=== PATIENT | male | born 1935 | race Caucasian/White ===

== ENCOUNTER 2019-11-15 12:59 | Inpatient (IN) | payer MEDICARE, OTHER ==
[2019-11-15 13:28] LABS: ABSOLUTE BASOPHILS # (AUTO) 0.1 10^3/uL (0.0-0.2); ABSOLUTE LYMPHOCYTES (AUTO) 0.6 10^3/uL (0.5-4.7); ABSOLUTE MONOCYTES (AUTO) 0.4 10^3/uL (0.1-1.4); ABSOLUTE NEUT (AUTO) 8.3 10^3/uL (1.7-8.2); BASOPHILS % (AUTO) 0.6 % (0-2); EOSINOPHILS % (AUTO) 0.1 % (0-6); HEMATOCRIT 34.7 % (37.9-51.0); HEMOGLOBIN 11.5 g/dL (13.5-17.0); LYMPHOCYTES % (AUTO) 6.3 % (13-45); MEAN CORPUSCULAR HGB CONC 33.2 g/dL (32.0-36.0); MEAN CORPUSCULAR VOLUME 93 fl (80-97); MONOCYTES % (AUTO) 4.1 % (3-13); PLATELET COUNT 207 10^3/uL (150-450); RED BLOOD COUNT 3.71 10^6/uL (4.35-5.55); SEGMENTED NEUTROPHILS % (AUTO) 88.9 % (42-78); TOTAL CELLS COUNTED % (AUTO) 100 %; WHITE BLOOD COUNT 9.3 10^3/uL (4.0-10.5)
[2019-11-15] MEDS ORDERED: NORMAL SALINE 1000 ML 1,000 ML IV ONE (13:31)
[2019-11-15 13:41] LABS: INTERNATIONAL RATION (INR) 1.84; PROTHROMBIN TIME 21.5 SEC (11.4-15.4)
--- NOTE | 2019-11-15 13:45 | RADIOLOGY REPORT (SQ) ---
EXAM DESCRIPTION: CHEST SINGLE VIEW COMPLETED DATE/TIME: 11/15/2019 1:31 pm REASON FOR STUDY: Productive cough/fever x 3 days COMPARISON: PA and lateral views of the chest from 10/07/2015. EXAM PARAMETERS: NUMBER OF VIEWS: One view. TECHNIQUE: An AP view of the chest was obtained. RADIATION DOSE: NA LIMITATIONS: None. FINDINGS: LUNGS AND PLEURA: The prominence of the interstitium is unchanged. There are bibasilar (r ight greater than left) pleural and parenchymal opacities that could represent a combination of pleur al fluid, atelectasis and or consolidation. There is no pneumothorax. MEDIASTINUM AND HILAR STRUCTURES: Stable mediastinal and hilar contours. HEART AND VASCULAR STRUCTURES: Unchanged cardiomegaly. BONES: No acute findings. HARDWARE: Status post median sternotomy. The left subclavian vein approach single lead transvenous p acemaker is intact. OTHER: No other finding. IMPRESSION: Bibasilar (right greater than left) pleural and parenchymal opacities that could represe nt a combination of pleural fluid, atelectasis and/or consolidation. In addition, give the cardiomeg jose and prominence of the interstitium clinical correlation for signs and symptoms of volume overload is recommended. TECHNICAL DOCUMENTATION: JOB ID: [id number] 2010 [employer]- All Rights Reserved Reading location - IP/workstation name: [email or web address]
[2019-11-15 13:46] LABS: ALBUMIN 3.7 g/dL (3.5-5.0); ALKALINE PHOSPHATASE 91 U/L (38-126); ANION GAP 7 (5-19); ASPARTATE AMINO TRANSFERASE 42 U/L (17-59); BILIRUBIN,DIRECT 0.3 mg/dL (0.0-0.4); BLOOD UREA NITROGEN 18 mg/dL (7-20); CALCIUM 8.7 mg/dL (8.4-10.2); CARBON DIOXIDE 35 mmol/L (22-30); CHLORIDE 97 mmol/L (98-107); GLUCOSE 130 mg/dL (75-110); POTASSIUM 3.4 mmol/L (3.6-5.0); TOTAL PROTEIN 6.7 g/dL (6.3-8.2)
[2019-11-15 13:52] LABS: VENOUS BLOOD HCO3 30.7 mmol/L (20-32); VENOUS BLOOD PCO2 44.5 mmHg (35-63); VENOUS BLOOD PH 7.46 (7.30-7.42)
[2019-11-15 14:09] LABS: APPEARANCE,URINE CLEAR; BILIRUBIN,URINE NEGATIVE (NEGATIVE); COLOR,URINE YELLOW; GLUCOSE, URINE NEGATIVE (NEGATIVE); KETONES,URINE NEGATIVE (NEGATIVE); LEUKOCYTE ESTERASE,URINE NEGATIVE (NEGATIVE); NITRITE,URINE NEGATIVE (NEGATIVE); PROTEIN,URINE 100 mg/dL (NEGATIVE); URINE SPECIFIC GRAVITY 1.017
--- NOTE | 2019-11-15 14:18 | ER Document Report ---
ED Medical Screen (RME) - General Chief Complaint: Fever Stated Complaint: NAUSEA/VOMITING Time Seen by Provider: 11/15/19 14:10 Primary Care Provider: PATI LLANOS MD [Primary Care Provider] - Follow up as needed Mode of Arrival: Medic Information source: Relative Notes: 84-year-old male with history of cardiac disease bypass pacemaker, abdominal obstruction, resents to the emergency department with cough since Tuesday. Reports he has been vomiting since yesterday. also reports that he fell last night unsure if he hit his head unsure if he had any change of consciousness. She reports he said he been laying there for over 2 hours. No complaints of fever or diarrhea. No complaints of chest pain but reports abdomen feels queasy. I have greeted and performed a rapid initial assessment of this patient. A comprehensive ED assessment and evaluation of the patient, analysis of test results and completion of the medical decision making process will be conducted by additional ED providers. TRAVEL OUTSIDE OF THE [place] IN LAST 30 DAYS: No - Related Data Allergies/Adverse Reactions: No Known Allergies Allergy (Verified 10/07/15 14:53) Past Medical History - Past Medical History Cardiac Medical History: Reports: Hx Congestive Heart Failure, Hx Hypertension Pulmonary Medical History: Reports: Hx COPD Psychiatric Medical History: Denies: Hx Depression Past Surgical History: Reports: Hx Abdominal Surgery - bowel resection, Hx Cardiac Catheterization, Hx Cardiac Surgery, Hx Cholecystectomy, Hx Open Heart Surgery - Immunizations Hx Diphtheria, Pertussis, Tetanus Vaccination: No Physical Exam - Vital signs Vitals: Temp Resp BP Pulse Ox 99.1 F 28 H 179/78 H 95 11/15/19 13:11 11/15/19 13:11 11/15/19 13:11 11/15/19 13:11 Course - Vital Signs Vital signs: Temp Pulse Resp BP Pulse Ox 99.1 F 28 H 179/78 H 92 11/15/19 13:11 11/15/19 13:11 11/15/19 13:11 11/15/19 13:17 - Laboratory Result Diagrams: 11/15/19 13:08 11/15/19 13:08 Laboratory results interpreted by me: 11/15/19 11/15/19 11/15/19 13:08 13:08 13:08 RBC 3.71 L Hgb 11.5 L Hct 34.7 L RDW 19.0 H Lymph % (Auto) 6.3 L Absolute Neuts (auto) 8.3 H Seg Neutrophils % 88.9 H PT 21.5 H VBG pH Potassium 3.4 L Chloride 97 L Carbon Dioxide 35 H Glucose 130 H POC Glucose Total Bilirubin 2.0 H Urine Protein Urine Urobilinogen 11/15/19 11/15/19 11/15/19 13:30 13:38 13:40 RBC Hgb Hct RDW Lymph % (Auto) Absolute Neuts (auto) Seg Neutrophils % PT VBG pH 7.46 H Potassium Chloride Carbon Dioxide Glucose POC Glucose 141 H Total Bilirubin Urine Protein 100 H Urine Urobilinogen 4.0 H Doctor's Discharge - Discharge Referrals: PATI LLANOS MD [Primary Care Provider] - Follow up as needed
--- NOTE | 2019-11-15 15:02 | RADIOLOGY REPORT (SQ) ---
EXAM DESCRIPTION: CT HEAD WITHOUT COMPLETED DATE/TIME: 11/15/2019 2:47 pm REASON FOR STUDY: fall, taking Eliquis COMPARISON: CT of the head without contrast from 03/30/2015. TECHNIQUE: Axial images acquired through the brain without intravenous contrast. Images reviewed wi th bone, brain and subdural windows. Additional sagittal and coronal reconstructions were generated. Images stored on PACS. All CT scanners at this facility use dose modulation, iterative reconstruction, and/or weight based d osing when appropriate to reduce radiation dose to as low as reasonably achievable (ALARA). [facility]: Dose Right [facility]: CareDose [facility]: Dose Right [facility]: Teradose 4D [facility]: Epidemic [employer] RADIATION DOSE: CT Rad equipment meets quality standard of care and radiation dose reduction techniq ues were employed. CTDIvol: 53.2 mGy. DLP: 991 mGy-cm. LIMITATIONS: None. FINDINGS: There is diffuse age-appropriate cerebral and cerebral volume loss. The caliber the ventr icles is concordant with the degree of sulcation. The confluent areas of hypoattenuation within the supratentorial periventricular and subcortical whit e matter could represent the sequela of chronic microvascular ischemia. There is no acute intracranial hemorrhage, vascular territorial infarct, extra-axial fluid collection , mass effect or midline shift. There is no effacement of the cerebral sulci or basal subarachnoid c isterns. The orbits and globes are intact. The paranasal sinuses are clear. There is no fracture of the calv arium. IMPRESSION: No acute intracranial abnormality. EVIDENCE OF ACUTE STROKE: NO. COMMENT: Quality ID # [id number]: Final reports with documentation of one or more dose reduction techniques (e.g., Automated exposure control, adjustment of the mA and/or kV according to patient size, use of iterative reconstruction technique) TECHNICAL DOCUMENTATION: JOB ID: [id number] 2010 [employer]- All Rights Reserved Reading location - IP/workstation name: [email or web address]
--- NOTE | 2019-11-15 15:12 | RADIOLOGY REPORT (SQ) ---
EXAM DESCRIPTION: CT CHEST WITHOUT COMPLETED DATE/TIME: 11/15/2019 2:47 pm REASON FOR STUDY: cough COMPARISON: AP view of the chest from 11/15/2019 TECHNIQUE: CT scan performed of the chest without intravenous contrast. Images reviewed with lung, soft tissue and bone windows. Reconstructed coronal and sagittal MPR images reviewed. All images st ored on PACS. All CT scanners at this facility use dose modulation, iterative reconstruction, and/or weight based d osing when appropriate to reduce radiation dose to as low as reasonably achievable (ALARA). [facility]: Dose Right [facility]: CareDose [facility]: Dose Right [facility]: Teradose 4D [facility]: Smart [employer] RADIATION DOSE: CT Rad equipment meets quality standard of care and radiation dose reduction techniq ues were employed. CTDIvol: 14.4 mGy. DLP: 532 mGy-cm. LIMITATIONS: No technical limitations. FINDINGS: LUNGS AND PLEURA: The trachea main bronchi are patent. The interlobular septa are thicken ed and the lung parenchyma demonstrates a mosaic attenuation pattern. There is no superimposed conso lidation or greater than 6 mm nodular mass. There are bilateral pleural effusions (moderately-sized on the right) ; the attenuation of the pleura l fluid measures less than 20 Hounsfield unit and on the right-side extends into the oblique fissure. There is no pneumothorax. HILAR AND MEDIASTINAL STRUCTURES: No adenopathy or mass. HEART AND VASCULAR STRUCTURES: Cardiomegaly, severe atherosclerotic calcification of the coronary art eries and findings of prior CABG. The single transvenous pacemaker lead terminates within the right ventricle. There is no pericardial effusion or thoracic aortic aneurysm. UPPER ABDOMEN: Stable right adrenal nodule that measures 1.5 x 1.6 cm. There are cholecystectomy cli ps in the gallbladder fossa. THYROID AND OTHER SOFT TISSUES: No masses or adenopathy. BONES: No acute findings. HARDWARE: None in the chest. OTHER: No other findings. IMPRESSION: Cardiomegaly, bilateral pleural effusions and thickening of the interlobular septa. The se findings are suggestive of CHF. TECHNICAL DOCUMENTATION: JOB ID: [id number] Quality ID # [id number]: Final reports with documentation of one or more dose reduction techniques (e.g., Au tomated exposure control, adjustment of the mA and/or kV according to patient size, use of iterative reconstruction technique) 2010 [employer]- All Rights Reserved Reading location - IP/workstation name: [email or web address]
[2019-11-15] MEDS ORDERED: FUROSEMIDE INJ/PF 40 MG/4 ML SDV IV ONE (17:39)
[2019-11-15] MEDS ORDERED: CEFTRIAXONE 1 GM/D5W RTU 1 GM/50 ML RTUPB IV ONE (17:39)
[2019-11-15] MEDS ORDERED: POTASSI CL 20 MEQ/50 ML RIDER 20 MEQ/50 ML RTUPB IV ONE (17:54)
--- NOTE | 2019-11-15 18:28 | ER Document Report ---
ED General - General Chief Complaint: Fever Stated Complaint: NAUSEA/VOMITING Time Seen by Provider: 11/15/19 14:10 Mode of Arrival: Medic Information source: Patient, Relative Notes: Patient is an 84-year-old male presenting to the emergency department chief complaint of nausea with vomiting and fever. states that the patient has been sick since yesterday. She states that he was so weak yesterday that he did fall down. Patient has not taken many of his medications today because he has been vomiting. There is been no change in prescribed medications. states that 1 of their children is admitted to the hospital with bilateral pneumonia. TRAVEL OUTSIDE OF THE [place] IN LAST 30 DAYS: No - HPI Onset: Yesterday Onset/Duration: Gradual, Worse Quality of pain: Achy Severity: Moderate Pain Level: 2 Associated symptoms: Fever, Nausea, Vomiting, Weakness Exacerbated by: Movement, Walking, Coughing, Deep breathing Relieved by: Denies Similar symptoms previously: No Recently seen / treated by doctor: No - Related Data Allergies/Adverse Reactions: No Known Allergies Allergy (Verified 10/07/15 14:53) Past Medical History - General Information source: Relative Cannot obtain history due to: Altered mental status - Social History Smoking Status: Former Smoker Frequency of alcohol use: None Drug Abuse: None Lives with: Spouse/Significant other Family History: Reviewed & Not Pertinent Patient has suicidal ideation: No Patient has homicidal ideation: No - Past Medical History Cardiac Medical History: Reports: Hx Congestive Heart Failure, Hx Hypertension Pulmonary Medical History: Reports: Hx COPD Psychiatric Medical History: Denies: Hx Depression Past Surgical History: Reports: Hx Abdominal Surgery - bowel resection, Hx Cardiac Catheterization, Hx Cardiac Surgery, Hx Cholecystectomy, Hx Open Heart Surgery - Immunizations Hx Diphtheria, Pertussis, Tetanus Vaccination: No Review of Systems - Review of Systems Constitutional: See HPI EENT: No symptoms reported Cardiovascular: No symptoms reported Respiratory: Short of breath Gastrointestinal: Nausea, Vomiting Genitourinary: No symptoms reported Male Genitourinary: No symptoms reported Musculoskeletal: No symptoms reported Skin: See HPI Hematologic/Lymphatic: No symptoms reported Neurological/Psychological: No symptoms reported -: Yes All other systems reviewed and negative Physical Exam - Vital signs Vitals: Temp Resp BP Pulse Ox 99.1 F 28 H 179/78 H 95 11/15/19 13:11 11/15/19 13:11 11/15/19 13:11 11/15/19 13:11 - Notes Notes: PHYSICAL EXAMINATION: GENERAL: Patient is an 84-year-old male sleeping on examination does awaken to noxious stimuli HEAD: Atraumatic, normocephalic. EYES: Pupils equal round and reactive to light, extraocular movements intact, sclera anicteric, conjunctiva are normal. ENT: nares patent, oropharynx clear without exudates. Dry mucous membranes. NECK: Normal range of motion, supple without lymphadenopathy, no appreciable JVD LUNGS: Lungs demonstrate mild rhonchi to the lower lobes poor excursion, poor effort. HEART: Regular rate with slightly irregularly irregular rhythm without murmurs ABDOMEN: Soft, minimally tender, increased bowel sounds. No guarding, no rebound. No masses appreciated. EXTREMITIES: 2+ pulses x4 right lower extremity to the calf mainly to the lateral aspect shows erythema and increased warmth NEUROLOGICAL: No focal neurological deficits. Moves all extremities spontaneously and on command. Patient does display signs of generalized weakness and malaise. SKIN: Warm, Dry, and intact. Normal turgor, no rashes or lesions noted. Course - Re-evaluation Re-evalutation: 11/15/19 18:30 Patient has been reevaluated several times while in emergency department patient has been maintained on a electronic device monitor without decompensation. After reviewing patient's laboratory EKG and radiologic results patient has been found to be hypokalemic also having a CHF exacerbation and right lower extremity cellulitis. When speaking with the patient's it has been uncovered that the patient's son is in the hospital with bilateral pneumonia at this time. We have started management of the cellulitis with Rocephin patient is receiving potassium 20 mEq IV piggyback and patient has received 40 mg of Lasix IV and a Erazo catheter has been placed because of the patient's incontinence and immobility. Patient has been consulted to the hospitalist for admission. - Vital Signs Vital signs: Temp Pulse Resp BP Pulse Ox 99.1 F 18 137/75 H 98 11/15/19 13:11 11/15/19 18:31 11/15/19 18:31 11/15/19 18:31 - Laboratory Result Diagrams: 11/15/19 13:08 11/15/19 13:08 Laboratory results interpreted by me: 11/15/19 11/15/19 11/15/19 13:08 13:08 13:08 RBC 3.71 L Hgb 11.5 L Hct 34.7 L RDW 19.0 H Lymph % (Auto) 6.3 L Absolute Neuts (auto) 8.3 H Seg Neutrophils % 88.9 H PT 21.5 H VBG pH Potassium 3.4 L Chloride 97 L Carbon Dioxide 35 H Glucose 130 H POC Glucose Total Bilirubin 2.0 H NT-Pro-B Natriuret Pep Urine Protein Urine Urobilinogen 11/15/19 11/15/19 11/15/19 13:08 13:30 13:38 RBC Hgb Hct RDW Lymph % (Auto) Absolute Neuts (auto) Seg Neutrophils % PT VBG pH 7.46 H Potassium Chloride Carbon Dioxide Glucose POC Glucose 141 H Total Bilirubin NT-Pro-B Natriuret Pep 51336 H Urine Protein Urine Urobilinogen 11/15/19 13:40 RBC Hgb Hct RDW Lymph % (Auto) Absolute Neuts (auto) Seg Neutrophils % PT VBG pH Potassium Chloride Carbon Dioxide Glucose POC Glucose Total Bilirubin NT-Pro-B Natriuret Pep Urine Protein 100 H Urine Urobilinogen 4.0 H - Diagnostic Test Radiology reviewed: Reports reviewed - EKG Interpretation by Me Rate: Normal Rhythm: A.Fib When compared to previous EKG there are: Changes noted Additional EKG results interpreted by me: 11/15/19 18:29 EKG as interpreted by me demonstrates atrial fibrillation with a normal ventricular response [address] depression in the anterolateral leads. This is new compared to prior EKG of October 07, 2015. Discharge - Discharge Clinical Impression: Hypokalemia CHF exacerbation Qualifiers: Heart failure type: systolic Qualified Code(s): I50.23 - Acute on chronic sy stolic (congestive) heart failure Cellulitis Qualifiers: Site of cellulitis: extremity Site of cellulitis of extremity: lower extremity Laterality: right Qualified Code(s): L03.115 - Cellulitis of right lower limb Condition: Fair Disposition: ADMITTED INPATIENT Admitting Provider: Lydia (Hospitalist) Unit Admitted: Telemetry
[2019-11-15] MEDS ORDERED: PROMETHAZINE HCL INJ 25 MG/1 ML VIAL IV PRN (18:39)
[2019-11-15] MEDS ORDERED: ONDANSETRON HCL INJ/PF 4 MG/2 ML SDV IV PRN (18:39)
[2019-11-15] MEDS ORDERED: OXYCODONE-ACETAMINOPHEN 5-325 MG TABLET PO PRN (18:39)
[2019-11-15] MEDS ORDERED: ACETAMINOPHEN 325 MG TABLET PO PRN (18:39)
--- NOTE | 2019-11-15 18:51 | PDOC H&P ---
History of Present Illness Admission Date/PCP: PATI LLANOS MD History of Present Illness: MARY ANN RAMOS is a 84 year old male past medical history of CAD status post CABG and stent, CHF, COPD, TIA, atrial fibrillation presenting to ED complaining of nausea, vomiting, cough, subjective fever. Stated that about 3 days ago he started having nonproductive cough, but this morning he had a subjective fever and started to have nausea and one episode of nonbilious and nonbloody vomiting associated with generalized weakness and fatigue. Patient denies any recent travel but his son who is hospital here at [facility] has been diagnosed with multifocal pneumonia. Patient also noted to have redness and swelling of right lower extremity below the knee down to 1 day. Denies any history of right lower extremity trauma. In ED he was noted to have a BNP of 10,500, CT chest showed cardiomegaly and bilateral pleural effusion. Hospital was consulted for admission. Past Medical History Cardiac Medical History: Reports: Congestive Heart Failure, Hypertension Pulmonary Medical History: Reports: Chronic Obstructive Pulmonary Disease (COPD) Psychiatric Medical History: Denies: Depression Past Surgical History Past Surgical History: Reports: Cardiac Catheterization, Cholecystectomy Social History Smoking Status: Unknown if Ever Smoked Frequency of Alcohol Use: Rare Hx Recreational Drug Use: No Hx Prescription Drug Abuse: No Family History Family History: Reviewed & Not Pertinent Parental Family History Reviewed: Yes Children Family History Reviewed: Yes Sibling(s) Family History Reviewed.: Yes Medication/Allergy Home Medications: Allopurinol [Zyloprim 100 mg Tablet] 100 mg PO DAILY 10/07/15 Apixaban [Eliquis 5 mg Tablet] 5 mg PO BID 10/07/15 Atorvastatin Calcium [Lipitor 40 mg Tablet] 40 mg PO DAILY 10/07/15 Carvedilol [Coreg 3.125 mg Tablet] 2 tab PO BID 10/07/15 Cyanocobalamin (Vitamin B-12) [B-12] 1,000 mcg PO DAILY 10/07/15 Lisinopril 20 mg PO DAILY 10/07/15 Potassium Chloride 20 meq PO DAILY 10/07/15 Sennosides [Senna] 8.6 mg PO BID PRN 10/07/15 Albuterol Sulfate [Proair HFA Inhalation Aerosol 8.5 gm MDI] 2 puff IH Q6HP PRN #1 hfa.aer.ad 10/09/15 Docusate Sodium [Colace 100 mg Capsule] 100 mg PO BID #60 capsule 10/09/15 Furosemide [Lasix 40 mg Tablet] 40 mg PO BID #60 tablet 10/09/15 Metolazone [Zaroxolyn 2.5 mg Tablet] 2.5 mg PO DAILY #30 tablet 10/09/15 Nitroglycerin [Nitro-Dur 2.5 mg (0.1 mg/Hr) Transdermal Ptch] 1 each TD DAILY #30 patch.td24 10/09/15 Tiotropium Gobler [Spiriva Handihaler 5 Cap/Kit (18 Mcg/Cap)] 1 cap IH DAILY #1 kit 10/09/15 Allergies/Adverse Reactions: No Known Allergies Allergy (Verified 10/07/15 14:53) Review of Systems Review of Systems: as per hpi Physical Exam Vital Signs: Temp Pulse Resp BP Pulse Ox 99.1 F 18 137/75 H 98 11/15/19 13:11 11/15/19 18:31 11/15/19 18:31 11/15/19 18:31 Intake & Output 11/14/19 11/15/19 11/16/19 06:59 06:59 06:59 Intake Total 1000 Balance 1000 Weight 82.3 kg General appearance: PRESENT: no acute distress, well-developed, well-nourished Respiratory exam: PRESENT: crackles, decreased breath sounds. ABSENT: rales, rhonchi, wheezes Cardiovascular exam: PRESENT: RRR. ABSENT: diastolic murmur, rubs, systolic murmur GI/Abdominal exam: PRESENT: normal bowel sounds, soft. ABSENT: distended, guarding, mass, organolmegaly, rebound, tenderness Neurological exam: PRESENT: alert, awake, oriented to person, oriented to place, oriented to time, oriented to situation, CN II-XII grossly intact. ABSENT: motor sensory deficit Skin exam: PRESENT: other - Right lower extremity below the knee circumferential mild swelling and erythema, no tenderness or discharge. Results Laboratory Results: 11/15/19 13:08 11/15/19 13:08 11/15/19 11/15/19 11/15/19 13:08 13:08 13:08 WBC 9.3 RBC 3.71 L Hgb 11.5 L Hct 34.7 L MCV 93 MCH 31.0 MCHC 33.2 RDW 19.0 H Plt Count 207 Seg Neutrophils % 88.9 H VBG pH VBG pCO2 VBG HCO3 VBG Base Excess Sodium 138.6 Potassium 3.4 L Chloride 97 L Carbon Dioxide 35 H Anion Gap 7 BUN 18 Creatinine 0.88 Est GFR ( Amer) > 60 Glucose 130 H Lactic Acid 1.3 Calcium 8.7 Total Bilirubin 2.0 H AST 42 Alkaline Phosphatase 91 Total Protein 6.7 Albumin 3.7 Urine Color Urine Appearance Urine pH Ur Specific [place] Urine Protein Urine Glucose (UA) Urine Ketones Urine Blood Urine Nitrite Ur Leukocyte Esterase Urine WBC (Auto) Urine RBC (Auto) 11/15/19 11/15/19 11/15/19 13:30 13:40 16:00 WBC RBC Hgb Hct MCV MCH MCHC RDW Plt Count Seg Neutrophils % VBG pH 7.46 H VBG pCO2 44.5 VBG HCO3 30.7 VBG Base Excess 6.0 Sodium Potassium Chloride Carbon Dioxide Anion Gap BUN Creatinine Est GFR ( Amer) Glucose Lactic Acid 1.0 Calcium Total Bilirubin AST Alkaline Phosphatase Total Protein Albumin Urine Color YELLOW Urine Appearance CLEAR Urine pH 7.0 Ur Specific [place] 1.017 Urine Protein 100 H Urine Glucose (UA) NEGATIVE Urine Ketones NEGATIVE Urine Blood NEGATIVE Urine Nitrite NEGATIVE Ur Leukocyte Esterase NEGATIVE Urine WBC (Auto) 2 Urine RBC (Auto) 2 11/15/19 11/15/19 13:08 13:08 Troponin I 0.092 NT-Pro-B Natriuret Pep 24122 H Impressions: Chest X-Ray 11/15/19 00:00 IMPRESSION: Bibasilar (right greater than left) pleural and parenchymal opacities that could represent a combination of pleural fluid, atelectasis and/or consolidation. In addition, give the cardiomegaly and prominence of the interstitium clinical correlation for signs and symptoms of volume overload is recommended. Head CT 11/15/19 14:19 IMPRESSION: No acute intracranial abnormality. EVIDENCE OF ACUTE STROKE: NO. Chest CT 11/15/19 14:22 IMPRESSION: Cardiomegaly, bilateral pleural effusions and thickening of the interlobular septa. These findings are suggestive of CHF. Assessment and Plan - Diagnosis (1) CHF exacerbation Qualifiers: Heart failure type: systolic Qualified Code(s): I50.23 - Acute on chronic systolic (congestive) heart failure Is this a current diagnosis for this admission?: Yes Plan: Acute systolic heart failure. EKG no significant changes. Troponins mildly elevated. proBNP 10,500. Admit to telemetry, strict in and out, cardiac diet, IV diuretics, beta- blockers, SORAIDA, daily weights. (2) Cellulitis Qualifiers: Site of cellulitis: extremity Site of cellulitis of extremity: lower extremity Laterality: right Qualified Code(s): L03.115 - Cellulitis of right lower limb Is this a current diagnosis for this admission?: Yes Plan: Lower extremity below the knee mild cellulitis. We will start empiric IV antibiotics. Blood culture. (3) Hypokalemia Is this a current diagnosis for this admission?: Yes Plan: Likely due to GI losses. No acute EKG changes. Replace as needed. Potassium level tomorrow. (4) Atrial fibrillation Qualifiers: Atrial fibrillation type: permanent Qualified Code(s): I48.21 - Permanent atrial fibrillation Is this a current diagnosis for this admission?: Yes Plan: History of chronic persistent atrial fibrillation. Rate controlled. Anticoagulated. Start home meds. Outpatient PCP and cardiology follow-up. (5) CAD (coronary artery disease) Is this a current diagnosis for this admission?: Yes Plan: Denies any anginal symptoms. No EKG change. Mild troponin elevation likely due to acute CHF exacerbation. Restart home meds. Trend troponins. Telemetry. (6) Hypertension Is this a current diagnosis for this admission?: Yes Plan: Volume overloaded. Normotensive. Restart home meds. Outpatient PCP follow-up.
--- NOTE | 2019-11-15 19:41 | EKG REPORT ---
SEVERITY:- ABNORMAL ECG - ATRIAL FIBRILLATION MULTIPLE VENTRICULAR PREMATURE COMPLEXES NONSPECIFIC INTRAVENTRICULAR CONDUCTION DELAY ST DEPRESSION, CONSIDER ISCHEMIA, ANT-LAT LDS : Confirmed by: Connie Orellana MD 15-Nov-2019 19:41:03
[2019-11-15] MEDS: IPRATROPIUM/ALBUTEROL 0.5-2.5 MG/3 ML AMPUL NEB SCH (20:37)
[2019-11-15 21:32] LABS: CREATINE KINASE MB 0.53 ng/mL (<4.55)
[2019-11-15 21:37] LABS: TROPONIN I 0.102 ng/mL
[2019-11-15] MEDS ORDERED: HEPARIN SOD (PORCINE) 5,000 UNIT/ML 1 ML VIAL SUBCUT SCH (22:00)
[2019-11-15] MEDS ORDERED: FUROSEMIDE INJ/PF 20 MG/2 ML SDV IV SCH (22:00)
[2019-11-15] MEDS: FAMOTIDINE 20 MG TABLET PO SCH (22:40)
[2019-11-16 05:34] LABS: HEMATOCRIT 32.8 % (37.9-51.0); HEMOGLOBIN 11.2 g/dL (13.5-17.0); MEAN CORPUSCULAR HEMOGLOBIN 31.6 pg (27.0-33.4); MEAN CORPUSCULAR HGB CONC 34.1 g/dL (32.0-36.0); MEAN CORPUSCULAR VOLUME 93 fl (80-97); PLATELET COUNT 174 10^3/uL (150-450); RED BLOOD COUNT 3.54 10^6/uL (4.35-5.55); RED CELL DISTRIBUTION WIDTH 19.1 % (11.5-14.0); WHITE BLOOD COUNT 6.7 10^3/uL (4.0-10.5)
[2019-11-16 05:50] LABS: ALBUMIN 3.3 g/dL (3.5-5.0); ALKALINE PHOSPHATASE 70 U/L (38-126); ANION GAP 6 (5-19); ASPARTATE AMINO TRANSFERASE 40 U/L (17-59); BILIRUBIN,DIRECT 0.4 mg/dL (0.0-0.4); BILIRUBIN,TOTAL 1.1 mg/dL (0.2-1.3); BLOOD UREA NITROGEN 19 mg/dL (7-20); CALCIUM 8.4 mg/dL (8.4-10.2); CARBON DIOXIDE 38 mmol/L (22-30); CHLORIDE 99 mmol/L (98-107); GLUCOSE 96 mg/dL (75-110); POTASSIUM 3.6 mmol/L (3.6-5.0); TOTAL PROTEIN 6.4 g/dL (6.3-8.2)
[2019-11-16 06:00] LABS: CREATINE KINASE MB 0.49 ng/mL (<4.55)
[2019-11-16 06:02] LABS: ABSOLUTE LYMPHOCYTES# (MANUAL) 0.4 10^3/uL (0.5-4.7); ABSOLUTE MONOCYTES # (MANUAL) 0.2 10^3/uL (0.1-1.4); BAND NEUTROPHILS % (MANUAL) 1 % (3-5); BASOPHILS % (MANUAL) 0 % (0-2); EOSINOPHILS % (MANUAL) 1 % (0-6); LYMPHOCYTES % (MANUAL) 6 % (13-45); MONOCYTES % (MANUAL) 3 % (3-13); SEGMENTED NEUTROPHILS % (MAN) 89 % (42-78); TOTAL CELLS COUNTED 100
[2019-11-16 06:03] LABS: POIKILOCYTOSIS SLIGHT; POLYCHROMASIA SLIGHT; TOXIC GRANULATION 1+
[2019-11-16 06:04] LABS: BURR CELLS SLIGHT; OVALOCYTES SLIGHT; PLATELET COMMENT ADEQUATE; SCHISTOCYTES SLIGHT
[2019-11-16 06:11] LABS: TROPONIN I 0.063 ng/mL
[2019-11-16] MEDS: IPRATROPIUM/ALBUTEROL 0.5-2.5 MG/3 ML AMPUL NEB SCH ×3 (08:07→20:26)
--- NOTE | 2019-11-16 09:07 | PDOC PROGRESS REPORT ---
Subjective Progress Note for:: 11/16/19 Subjective:: 84 year old male past medical history of CAD status post CABG and stent, CHF, COPD, TIA, atrial fibrillation presenting to ED complaining of nausea, vomiting, cough, subjective fever. Stated that about 3 days ago he started having nonproductive cough, but this morning he had a subjective fever and started to have nausea and one episode of nonbilious and nonbloody vomiting associated with generalized weakness and fatigue. Patient denies any recent travel but his son who is hospital here at [facility] has been diagnosed with multifocal pneumonia. Patient also noted to have redness and swelling of right lower extremity below the knee down to 1 day. Denies any history of right lower extremity trauma. In ED he was noted to have a BNP of 10,500, CT chest showed cardiomegaly and bilateral pleural effusion. Hospital was consulted for admission. 11/16/[id number]-old male with history of coronary artery disease status post CABG and stent placement, congestive heart failure, COPD, TIA, atrial fibrillation on Eliquis admitted with complaints of nausea vomiting associated with subjective fever. Patient is comfortable in the bed communicating well. At the time of examination found to have right lower leg cellulitis. Patient is receiving antibiotic therapy. Portably in the bed communicating well. Not in distress. Reason For Visit: CELLULITIS, SHORTNESS OF BREATH, NAUSEA AND Physical Exam Vital Signs: Temp Pulse Resp BP Pulse Ox 97.8 F 14 142/73 H 98 11/16/19 08:10 11/16/19 07:31 11/16/19 07:31 11/16/19 07:31 Intake & Output 11/15/19 11/16/19 11/17/19 06:59 06:59 06:59 Intake Total 1100 Output Total 2000 Balance -900 Weight 82.3 kg General appearance: PRESENT: no acute distress, well-developed Head exam: PRESENT: atraumatic Eye exam: PRESENT: PERRLA Mouth exam: PRESENT: moist, tongue midline Teeth exam: PRESENT: poor dentation Neck exam: ABSENT: carotid bruit, JVD, lymphadenopathy, thyromegaly Respiratory exam: PRESENT: clear to auscultation beverly. ABSENT: rales, rhonchi, wheezes Cardiovascular exam: PRESENT: +S1, +S2, systolic murmur Pulses: PRESENT: normal dorsalis pedis pul GI/Abdominal exam: PRESENT: normal bowel sounds, soft. ABSENT: distended, guarding, mass, organolmegaly, rebound, tenderness Rectal exam: PRESENT: deferred Gentrourinary exam: PRESENT: indwelling catheter Extremities exam: PRESENT: full ROM. ABSENT: calf tenderness, clubbing, pedal edema Neurological exam: PRESENT: alert, awake, oriented to person, oriented to place, oriented to time, oriented to situation, CN II-XII grossly intact. ABSENT: motor sensory deficit Psychiatric exam: PRESENT: appropriate affect, normal mood. ABSENT: homicidal ideation, suicidal ideation Results Laboratory Results: 11/16/19 05:13 11/16/19 05:13 11/15/19 11/15/19 11/15/19 13:08 13:08 13:08 WBC 9.3 RBC 3.71 L Hgb 11.5 L Hct 34.7 L MCV 93 MCH 31.0 MCHC 33.2 RDW 19.0 H Plt Count 207 Seg Neutrophils % 88.9 H VBG pH VBG pCO2 VBG HCO3 VBG Base Excess Sodium 138.6 Potassium 3.4 L Chloride 97 L Carbon Dioxide 35 H Anion Gap 7 BUN 18 Creatinine 0.88 Est GFR ( Amer) > 60 Glucose 130 H Lactic Acid 1.3 Calcium 8.7 Magnesium Total Bilirubin 2.0 H AST 42 Alkaline Phosphatase 91 Total Protein 6.7 Albumin 3.7 Urine Color Urine Appearance Urine pH Ur Specific [place] Urine Protein Urine Glucose (UA) Urine Ketones Urine Blood Urine Nitrite Ur Leukocyte Esterase Urine WBC (Auto) Urine RBC (Auto) 11/15/19 11/15/19 11/15/19 13:30 13:40 16:00 WBC RBC Hgb Hct MCV MCH MCHC RDW Plt Count Seg Neutrophils % VBG pH 7.46 H VBG pCO2 44.5 VBG HCO3 30.7 VBG Base Excess 6.0 Sodium Potassium Chloride Carbon Dioxide Anion Gap BUN Creatinine Est GFR ( Amer) Glucose Lactic Acid 1.0 Calcium Magnesium Total Bilirubin AST Alkaline Phosphatase Total Protein Albumin Urine Color YELLOW Urine Appearance CLEAR Urine pH 7.0 Ur Specific [place] 1.017 Urine Protein 100 H Urine Glucose (UA) NEGATIVE Urine Ketones NEGATIVE Urine Blood NEGATIVE Urine Nitrite NEGATIVE Ur Leukocyte Esterase NEGATIVE Urine WBC (Auto) 2 Urine RBC (Auto) 2 11/15/19 11/16/19 11/16/19 20:14 05:13 05:13 WBC 6.7 RBC 3.54 L Hgb 11.2 L Hct 32.8 L MCV 93 MCH 31.6 MCHC 34.1 RDW 19.1 H Plt Count 174 Seg Neutrophils % Not Reportable VBG pH VBG pCO2 VBG HCO3 VBG Base Excess Sodium 143.0 Potassium 3.6 Chloride 99 Carbon Dioxide 38 H Anion Gap 6 BUN 19 Creatinine 0.88 Est GFR ( Amer) > 60 Glucose 96 Lactic Acid 1.5 Calcium 8.4 Magnesium 1.7 Total Bilirubin 1.1 AST 40 Alkaline Phosphatase 70 Total Protein 6.4 Albumin 3.3 L Urine Color Urine Appearance Urine pH Ur Specific [place] Urine Protein Urine Glucose (UA) Urine Ketones Urine Blood Urine Nitrite Ur Leukocyte Esterase Urine WBC (Auto) Urine RBC (Auto) 11/15/19 11/15/19 11/15/19 13:08 13:08 20:45 Creatine Kinase 57 CK-MB (CK-2) Troponin I 0.092 NT-Pro-B Natriuret Pep 50943 H 11/15/19 11/16/19 11/16/19 20:45 05:13 05:13 Creatine Kinase 48 L CK-MB (CK-2) 0.53 0.49 Troponin I 0.102 0.063 NT-Pro-B Natriuret Pep Impressions: Chest X-Ray 11/15/19 00:00 IMPRESSION: Bibasilar (right greater than left) pleural and parenchymal opacities that could represent a combination of pleural fluid, atelectasis and/or consolidation. In addition, give the cardiomegaly and prominence of the interstitium clinical correlation for signs and symptoms of volume overload is recommended. Head CT 11/15/19 14:19 IMPRESSION: No acute intracranial abnormality. EVIDENCE OF ACUTE STROKE: NO. Chest CT 11/15/19 14:22 IMPRESSION: Cardiomegaly, bilateral pleural effusions and thickening of the interlobular septa. These findings are suggestive of CHF. Assessment and Plan - Diagnosis (1) CHF exacerbation Qualifiers: Heart failure type: systolic Qualified Code(s): I50.23 - Acute on chronic systolic (congestive) heart failure Is this a current diagnosis for this admission?: Yes Plan: Acute systolic heart failure. EKG no significant changes. Troponins mildly elevated. proBNP 10,500. Admit to telemetry, strict in and out, cardiac diet, IV diuretics, beta- blockers, SORAIDA, daily weights. 11/16/2019-patient admitted with CHF exacerbation chest x-ray indicated bilateral pleural effusions associated with cardiomegaly and BNP is 10,500. Patient is receiving IV Lasix 40 mg twice a day patient is also on beta-blockers , SORAIDA inhibitor's. Plan is to repeat the chest x-ray today. (2) Cellulitis Qualifiers: Site of cellulitis: extremity Site of cellulitis of extremity: lower extremity Laterality: right Qualified Code(s): L03.115 - Cellulitis of right lower limb Is this a current diagnosis for this admission?: Yes Plan: Lower extremity below the knee mild cellulitis. We will start empiric IV antibiotics. Blood culture. 11/16/2019-patient came in with right lower leg swelling and mild cellulitis. Cultures are pending. Currently on IV Rocephin plan is to continue the antibiotic therapy. (3) Hypokalemia Is this a current diagnosis for this admission?: Yes Plan: Likely due to GI losses. No acute EKG changes. Replace as needed. Potassium level tomorrow. [id number]-patient came in with hypokalemia received potassium supplementations no EKG changes latest potassium is 3.6. Hypokalemia is resolved. (4) Atrial fibrillation Qualifiers: Atrial fibrillation type: permanent Qualified Code(s): I48.21 - Permanent atrial fibrillation Is this a current diagnosis for this admission?: Yes Plan: History of chronic persistent atrial fibrillation. Rate controlled. Anticoagulated. Start home meds. Outpatient PCP and cardiology follow-up. 11/16/19-patient has history of chronic atrial fibrillation on Eliquis at home. Plan is to continue Eliquis during the hospital stay. (5) CAD (coronary artery disease) Is this a current diagnosis for this admission?: No Plan: Denies any anginal symptoms. No EKG change. Mild troponin elevation likely due to acute CHF exacerbation. Restart home meds. Trend troponins. Telemetry. 11/16/2019-patient has history of coronary artery disease mild elevation in troponin most likely type II myocardial ischemia secondary to CHF exacerbation. (6) Hypertension Is this a current diagnosis for this admission?: No Plan: Volume overloaded. Normotensive. Restart home meds. Outpatient PCP follow-up. 11/16/19-patient has history of chronic essential hypertension blood pressure this morning is 142/72. Stable. Plan is to continue her home medications. (7) Bradycardia Is this a current diagnosis for this admission?: No Plan: 11/16/2019-patient's heart rate is around 50. Patient is on beta-blockers at home. To hold Coreg at this time.
--- NOTE | 2019-11-16 09:45 | RADIOLOGY REPORT (SQ) ---
EXAM DESCRIPTION: CHEST 2 VIEWS COMPLETED DATE/TIME: 11/16/2019 9:35 am REASON FOR STUDY: chf COMPARISON: None. EXAM PARAMETERS: NUMBER OF VIEWS: two views TECHNIQUE: Digital Frontal and Lateral radiographic views of the chest acquired. RADIATION DOSE: NA LIMITATIONS: none FINDINGS: LUNGS AND PLEURA: No definite airspace disease. Small bilateral effusions. No pneumothor ax. MEDIASTINUM AND HILAR STRUCTURES: Stable. HEART AND VASCULAR STRUCTURES: Enlarged, stable. Central vascular congestion. No overt edema. Evid ence of prior CABG. BONES: Sternotomy changes. No acute findings. HARDWARE: CABG hardware. Sternotomy changes. Left-sided single lead cardiac pacer with lead over ri ght ventricle. OTHER: No other significant finding. IMPRESSION: Stable enlarged cardiac silhouette, central vascular congestion and small bilateral effu sions. No overt pulmonary edema. TECHNICAL DOCUMENTATION: JOB ID: [id number] 2010 [employer]- All Rights Reserved Reading location - IP/workstation name: [email or web address]
[2019-11-16] MEDS ORDERED: FUROSEMIDE INJ/PF 20 MG/2 ML SDV IV SCH (10:00)
[2019-11-16] MEDS: FAMOTIDINE 20 MG TABLET PO SCH ×2 (10:54→21:11)
[2019-11-16] MEDS: APIXABAN 5 MG TABLET PO SCH ×2 (10:54→20:19)
[2019-11-16] MEDS: CEFTRIAXONE 1 GM/D5W RTU 1 GM/50 ML RTUPB IV SCH (10:55)
[2019-11-16] MEDS: FUROSEMIDE INJ/PF 40 MG/4 ML SDV IV SCH ×2 (10:55→21:11)
[2019-11-16 14:15] LABS: CREATINE KINASE MB 0.64 ng/mL (<4.55); TROPONIN I 0.047 ng/mL
[2019-11-17] MEDS: IPRATROPIUM/ALBUTEROL 0.5-2.5 MG/3 ML AMPUL NEB SCH ×3 (08:07→20:33)
[2019-11-17] MEDS: CEFTRIAXONE 1 GM/D5W RTU 1 GM/50 ML RTUPB IV SCH (09:26)
[2019-11-17] MEDS: APIXABAN 5 MG TABLET PO SCH ×2 (09:26→17:28)
[2019-11-17] MEDS: FAMOTIDINE 20 MG TABLET PO SCH ×2 (09:26→21:49)
[2019-11-17] MEDS: FUROSEMIDE INJ/PF 40 MG/4 ML SDV IV SCH ×2 (09:26→21:49)
[2019-11-17] MEDS: LISINOPRIL 5 MG TABLET PO SCH (11:58)
--- NOTE | 2019-11-17 12:13 | PDOC PROGRESS REPORT ---
Subjective Progress Note for:: 11/17/19 Subjective:: MARY ANN RAMOS is a 84 year old male past medical history of CAD status post CABG and stent, CHF, COPD, TIA, atrial fibrillation presenting to ED complaining of nausea, vomiting, cough, subjective fever. Stated that about 3 days ago he started having nonproductive cough, but this morning he had a subjective fever and started to have nausea and one episode of nonbilious and nonbloody vomiting associated with generalized weakness and fatigue. Patient denies any recent travel but his son who is hospital here at [facility] has been diagnosed with multifocal pneumonia. Patient also noted to have redness and swelling of right lower extremity below the knee down to 1 day. Denies any history of right lower extremity trauma. In ED he was noted to have a BNP of 10,500, CT chest showed cardiomegaly and bilateral pleural effusion. Hospital was consulted for admission. 11/17/2019. No acute events overnight. Patient is still complaining of shortness of breath and generalized weakness otherwise denies any fever, chills, nausea, vomiting, diarrhea, constipation or any urinary symptoms. Reason For Visit: CELLULITIS, SHORTNESS OF BREATH, NAUSEA AND Physical Exam Vital Signs: Temp Pulse Resp BP Pulse Ox 98.4 F 56 L 16 153/72 H 98 11/17/19 07:57 11/17/19 08:09 11/17/19 08:09 11/17/19 07:57 11/17/19 08:09 Intake & Output 11/16/19 11/17/19 11/18/19 06:59 06:59 06:59 Intake Total 1100 310 50 Output Total 2000 1925 Balance -900 -1615 50 Weight 82.3 kg 87.6 kg General appearance: PRESENT: no acute distress, well-developed, well-nourished Head exam: PRESENT: atraumatic, normocephalic Respiratory exam: PRESENT: crackles, wheezes. ABSENT: rales, rhonchi Cardiovascular exam: PRESENT: RRR. ABSENT: diastolic murmur, rubs, systolic murmur GI/Abdominal exam: PRESENT: normal bowel sounds, soft. ABSENT: distended, guarding, mass, organolmegaly, rebound, tenderness Neurological exam: PRESENT: alert, awake, oriented to person, oriented to place, oriented to time, oriented to situation, CN II-XII grossly intact. ABSENT: motor sensory deficit Results Laboratory Results: 11/16/19 05:13 11/16/19 05:13 11/15/19 11/15/19 11/15/19 13:08 13:08 20:45 Creatine Kinase 57 CK-MB (CK-2) Troponin I 0.092 NT-Pro-B Natriuret Pep 66612 H 11/15/19 11/16/19 11/16/19 20:45 05:13 05:13 Creatine Kinase 48 L CK-MB (CK-2) 0.53 0.49 Troponin I 0.102 0.063 NT-Pro-B Natriuret Pep 11/16/19 11/16/19 13:19 13:19 Creatine Kinase 41 L CK-MB (CK-2) 0.64 Troponin I 0.047 NT-Pro-B Natriuret Pep Impressions: Head CT 11/15/19 14:19 IMPRESSION: No acute intracranial abnormality. EVIDENCE OF ACUTE STROKE: NO. Chest CT 11/15/19 14:22 IMPRESSION: Cardiomegaly, bilateral pleural effusions and thickening of the interlobular septa. These findings are suggestive of CHF. Chest X-Ray 11/16/19 00:00 IMPRESSION: Stable enlarged cardiac silhouette, central vascular congestion and small bilateral effusions. No overt pulmonary edema. Assessment and Plan - Diagnosis (1) CHF exacerbation Qualifiers: Heart failure type: systolic Qualified Code(s): I50.23 - Acute on chronic systolic (congestive) heart failure Is this a current diagnosis for this admission?: Yes Plan: Acute systolic heart failure. EKG no significant changes. Troponins mildly elevated. proBNP 10,500. Continue telemetry, strict in and out, cardiac diet, IV diuretics, beta- blockers, SORAIDA, daily weights. (2) Cellulitis Qualifiers: Site of cellulitis: extremity Site of cellulitis of extremity: lower extremity Laterality: right Qualified Code(s): L03.115 - Cellulitis of right lower limb Is this a current diagnosis for this admission?: Yes Plan: Moderate improvement. Presented with lower extremity below the knee mild cellulitis. Continue empiric IV antibiotics. Cultures no growth so far. (3) Hypokalemia Is this a current diagnosis for this admission?: Yes Plan: Resolved. Likely due to GI losses. No acute EKG changes. Replace as needed. Potassium level tomorrow. (4) Atrial fibrillation Qualifiers: Atrial fibrillation type: permanent Qualified Code(s): I48.21 - Permanent atrial fibrillation Is this a current diagnosis for this admission?: Yes Plan: History of chronic persistent atrial fibrillation. Rate controlled. Anticoagulated. Continue home meds. Outpatient PCP and cardiology follow-up. (5) CAD (coronary artery disease) Is this a current diagnosis for this admission?: No Plan: Denies any anginal symptoms. No EKG change. Mild troponin elevation likely due to acute CHF exacerbation. Restart home meds. Opponents trending down. (6) Hypertension Is this a current diagnosis for this admission?: No Plan: Euvolemic. BP not optimized. Continue IV Lasix. Will start on low-dose SORAIDA. Monitor vitals. Adjust meds as needed. Outpatient PCP follow-up.
[2019-11-18] MEDS: IPRATROPIUM/ALBUTEROL 0.5-2.5 MG/3 ML AMPUL NEB SCH (08:14)
[2019-11-18 08:17] VITALS: BP 147/76
[2019-11-18] MEDS: FAMOTIDINE 20 MG TABLET PO SCH (09:18)
[2019-11-18] MEDS: FUROSEMIDE INJ/PF 40 MG/4 ML SDV IV SCH (09:18)
[2019-11-18] MEDS: APIXABAN 5 MG TABLET PO SCH (09:18)
[2019-11-18] MEDS: CEFTRIAXONE 1 GM/D5W RTU 1 GM/50 ML RTUPB IV SCH (09:19)
[2019-11-18] MEDS: LISINOPRIL 5 MG TABLET PO SCH (09:19)
--- NOTE | 2019-11-18 12:02 | RADIOLOGY REPORT (SQ) ---
EXAM DESCRIPTION: VENOUS UNILATERAL LOWER COMPLETED DATE/TIME: 11/16/2019 7:21 pm REASON FOR STUDY: r/dvy rt leg COMPARISON: None. TECHNIQUE: Dynamic and static dee scale and color images acquired of the right leg venous system. S elected spectral images acquired with additional compression and augmentation maneuvers. The contrala teral common femoral vein and saphenofemoral junction were also imaged. Images stored on PACS. LIMITATIONS: None. FINDINGS: COMMON FEMORAL: Normal phasicity, compression and augmentation. No visualized echogenic ma terial on dee scale. No defects on color images. FEMORAL: Normal compression and augmentation. No visualized echogenic material on dee scale. No defe cts on color images. POPLITEAL: Normal compression, augmentation. No visualized echogenic material on dee scale. No defec ts on color images. CALF VESSELS: Normal compression, augmentation. No visualized echogenic material on dee scale. No de fects on color images. GSV and SSV: Normal compression, augmentation. No visualized echogenic material on dee scale. No def ects on color images. ANY DEEP VENOUS INSUFFICIENCY: No. ANY EVIDENCE OF POPLITEAL CYST: No. OTHER: No other significant finding. CONTRALATERAL COMMON FEMORAL VEIN AND SAPHENOFEMORAL JUNCTION: Normal phasicity, compression and augmentation. No visualized echogenic material on dee scale. No de fects on color images. IMPRESSION: NO EVIDENCE DVT OR SVT IN THE RIGHT LEG. TECHNICAL DOCUMENTATION: JOB ID: [id number] 2010 [employer]- All Rights Reserved Reading location - IP/workstation name: [email or web address]
--- NOTE | 2019-11-21 16:16 | PDOC DISCHARGE SUMMARY ---
Impression - Admit/DC Date/PCP Admission Date/Primary Care Provider: 11/17/19 12:28 PATI LLANOS MD Discharge Date: 11/21/19 - Discharge Diagnosis (1) CHF exacerbation Is this a current diagnosis for this admission?: Yes (2) Cellulitis Is this a current diagnosis for this admission?: Yes (3) Hypokalemia Is this a current diagnosis for this admission?: Yes (4) Atrial fibrillation Is this a current diagnosis for this admission?: Yes (5) CAD (coronary artery disease) Is this a current diagnosis for this admission?: Yes (6) Hypertension Is this a current diagnosis for this admission?: Yes - Additional Information Discharge Diet: As Tolerated Discharge Activity: Activity As Tolerated Referrals: PATI LLANOS MD [Primary Care Provider] - 11/22/19 11:00 am (WITH NICOLE RADER. 11/18 @ 1006 SPOKE TO/NOTIFIED FAMILY MEMBER OF APPT.) Prescriptions: Cephalexin Monohydrate [Keflex 500 mg Capsule] 500 mg PO TID 3 Days #9 capsule Home Medications: Apixaban [Eliquis 5 mg Tablet] 5 mg PO BID 10/07/15 Allopurinol [Zyloprim 100 mg Tablet] 100 mg PO DAILY 11/17/19 Atorvastatin Calcium [Lipitor 40 mg Tablet] 40 mg PO QHS 11/17/19 Carvedilol [Coreg 6.25 mg Tablet] 6.25 mg PO Q12 11/17/19 Ferrous Sulfate [Feosol 325 mg Tablet] 325 mg PO DAILY 11/17/19 Folic Acid [Folvite 1 mg Tablet] 1 mg PO DAILY 11/17/19 Furosemide [Lasix 40 mg Tablet] 40 mg PO DAILY 11/17/19 Losartan Potassium 50 mg PO DAILY 11/17/19 Methotrexate Sodium [Rheumatrex 2.5 mg Tablet] 10 mg PO RED@1000 11/17/19 Multivitamin [Tab-A-Deborah (Multiple Vitamin) Tablet] 1 tab PO DAILY 11/17/19 Potassium Chloride [Klor-Con 10 Meq Tablet ER] 20 meq PO DAILY 11/17/19 Tiotropium [place] [Spiriva Handihaler 5 Cap/Kit (18 Mcg/Cap)] 1 inh IN DAILY 11/17/19 Cephalexin Monohydrate [Keflex 500 mg Capsule] 500 mg PO TID 3 Days #9 capsule 11/18/19 History of Present Illiness History of Present Illness: MARY ANN RAMOS is a 84 year old male past medical history of CAD status post CABG and stent, CHF, COPD, TIA, atrial fibrillation presenting to ED complaining of nausea, vomiting, cough, subjective fever. Stated that about 3 days ago he started having nonproductive cough, but this morning he had a subjective fever and started to have nausea and one episode of nonbilious and nonbloody vomiting associated with generalized weakness and fatigue. Patient denies any recent travel but his son who is hospital [facility] at [facility] has been diagnosed with multifocal pneumonia. Patient also noted to have redness and swelling of right lower extremity below the knee down to 1 day. Denies any history of right lower extremity trauma. In ED he was noted to have a BNP of 10,500, CT chest showed cardiomegaly and bilateral pleural effusion. Hospital was consulted for admission. Hospital Course Hospital Course: (1) CHF exacerbation Acute systolic heart failure. EKG no significant changes. Troponins mildly elevated. proBNP 10,500. Admitted to telemetry, strict in and out, cardiac diet, IV diuretics, beta- blockers, SORAIDA, daily weights. Euvolemic at the time of discharge. Negative fluid balance. Discharged home on beta-blockers, ARB and diuretics. 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 (2) Cellulitis Resolved. Presented with lower extremity below the knee mild cellulitis. Was started on empiric IV antibiotics. Cultures no growth. Afebrile, WBC WNL at the time of discharge. (3) Hypokalemia Resolved. Likely due to GI losses. No acute EKG changes. Potassium WNL at time of discharge. (4) Atrial fibrillation History of chronic persistent atrial fibrillation. Rate controlled. Anticoagulated. Was restart home meds. Outpatient PCP and cardiology follow-up. (5) CAD (coronary artery disease) Denied any anginal symptoms. No EKG change. Mild troponin elevation likely due to acute CHF exacerbation. Restarted home meds. Troponins trended down. Denied any anginal symptoms at the time of discharge. (6) Hypertension Euvolemic. Optimized. Was started on diuretics, SORAIDA and beta-blockers. Dosages adjusted. Advised to follow-up with PCP. Restart home meds upon discharge. Physical Exam Vital Signs: Temp Pulse Resp BP Pulse Ox 98.5 F 72 16 147/76 H 95 11/18/19 08:00 11/18/19 10:00 11/18/19 08:14 11/18/19 08:00 11/18/19 08:14 General appearance: PRESENT: no acute distress, well-developed, well-nourished Head exam: PRESENT: atraumatic, normocephalic Respiratory exam: PRESENT: clear to auscultation beverly. ABSENT: rales, rhonchi, wheezes Cardiovascular exam: PRESENT: RRR. ABSENT: diastolic murmur, rubs, systolic murmur GI/Abdominal exam: PRESENT: normal bowel sounds, soft. ABSENT: distended, guarding, mass, organolmegaly, rebound, tenderness Extremities exam: PRESENT: full ROM. ABSENT: calf tenderness, clubbing, pedal edema Neurological exam: PRESENT: alert, awake, oriented to person, oriented to place, oriented to time, oriented to situation, CN II-XII grossly intact. ABSENT: motor sensory deficit Skin exam: PRESENT: dry, intact, warm. ABSENT: cyanosis, rash Results Laboratory Results: WBC 6.7 10^3/uL (4.0-10.5) 11/16/19 05:13 RBC 3.54 10^6/uL (4.35-5.55) L 11/16/19 05:13 Hgb 11.2 g/dL (13.5-17.0) L 11/16/19 05:13 Hct 32.8 % (37.9-51.0) L 11/16/19 05:13 MCV 93 fl (80-97) 11/16/19 05:13 MCH 31.6 pg (27.0-33.4) 11/16/19 05:13 MCHC 34.1 g/dL (32.0-36.0) 11/16/19 05:13 RDW 19.1 % (11.5-14.0) H 11/16/19 05:13 Plt Count 174 10^3/uL (150-450) 11/16/19 05:13 Lymph % (Auto) Not Reportable 11/16/19 05:13 [place] % (Auto) Not Reportable 11/16/19 05:13 Eos % (Auto) Not Reportable 11/16/19 05:13 Baso % (Auto) Not Reportable 11/16/19 05:13 Absolute Neuts (auto) Not Reportable 11/16/19 05:13 Absolute Lymphs (auto) Not Reportable 11/16/19 05:13 Absolute Monos (auto) Not Reportable 11/16/19 05:13 Absolute Eos (auto) Not Reportable 11/16/19 05:13 Absolute Basos (auto) Not Reportable 11/16/19 05:13 Total Counted 100 11/16/19 05:13 Seg Neutrophils % Not Reportable 11/16/19 05:13 Seg Neuts % (Manual) 89 % (42-78) H 11/16/19 05:13 Band Neutrophils % 1 % (3-5) L 11/16/19 05:13 Lymphocytes % (Manual) 6 % (13-45) L 11/16/19 05:13 Monocytes % (Manual) 3 % (3-13) 11/16/19 05:13 Eosinophils % (Manual) 1 % (0-6) 11/16/19 05:13 Basophils % (Manual) 0 % (0-2) 11/16/19 05:13 Abs Neuts (Manual) 6.0 10^3/uL (1.7-8.2) 11/16/19 05:13 Abs Lymphs (Manual) 0.4 10^3/uL (0.5-4.7) L 11/16/19 05:13 Abs Monocytes (Manual) 0.2 10^3/uL (0.1-1.4) 11/16/19 05:13 Absolute Eos (Manual) 0.1 10^3/uL (0.0-0.6) 11/16/19 05:13 Abs Basophils (Manual) 0.0 10^3/uL (0.0-0.2) 11/16/19 05:13 Toxic Granulation 1+ 11/16/19 05:13 Platelet Comment ADEQUATE 11/16/19 05:13 Polychromasia SLIGHT 11/16/19 05:13 Poikilocytosis SLIGHT 11/16/19 05:13 Ovalocytes SLIGHT 11/16/19 05:13 [place] Cells SLIGHT 11/16/19 05:13 Schistocytes SLIGHT 11/16/19 05:13 PT 21.5 SEC (11.4-15.4) H 11/15/19 13:08 INR 1.84 11/15/19 13:08 VBG pH 7.46 (7.30-7.42) H 11/15/19 13:30 VBG pCO2 44.5 mmHg (35-63) 11/15/19 13:30 VBG HCO3 30.7 mmol/L (20-32) 11/15/19 13:30 VBG Base Excess 6.0 mmol/L 11/15/19 13:30 Sodium 143.0 mmol/L (137-145) 11/16/19 05:13 Potassium 3.6 mmol/L (3.6-5.0) 11/16/19 05:13 Chloride 99 mmol/L (98-107) 11/16/19 05:13 Carbon Dioxide 38 mmol/L (22-30) H 11/16/19 05:13 Anion Gap 6 (5-19) 11/16/19 05:13 BUN 19 mg/dL (7-20) 11/16/19 05:13 Creatinine 0.88 mg/dL (0.52-1.25) 11/16/19 05:13 Est GFR ( Amer) > 60 (>60) 11/16/19 05:13 Est GFR (MDRD) Non-Af > 60 (>60) 11/16/19 05:13 Glucose 96 mg/dL (75-110) 11/16/19 05:13 POC Glucose 93 mg/dL (70-110) 11/16/19 08:18 Lactic Acid 1.5 mmol/L (0.7-2.1) 11/15/19 20:14 Calcium 8.4 mg/dL (8.4-10.2) 11/16/19 05:13 Magnesium 1.7 mg/dL (1.6-2.3) 11/16/19 05:13 Total Bilirubin 1.1 mg/dL (0.2-1.3) 11/16/19 05:13 Direct Bilirubin 0.4 mg/dL (0.0-0.4) 11/16/19 05:13 Neonat Total Bilirubin Not Reportable 11/16/19 05:13 Neonat Direct Bilirubin Not Reportable 11/16/19 05:13 Neonat Indirect Bili Not Reportable 11/16/19 05:13 AST 40 U/L (17-59) 11/16/19 05:13 ALT 15 U/L (<50) 11/16/19 05:13 Alkaline Phosphatase 70 U/L (38-126) 11/16/19 05:13 Creatine Kinase 41 U/L (55-170) L 11/16/19 13:19 CK-MB (CK-2) 0.64 ng/mL (<4.55) 11/16/19 13:19 Troponin I 0.047 ng/mL 11/16/19 13:19 NT-Pro-B Natriuret Pep 99271 pg/mL (<450) H 11/15/19 13:08 Total Protein 6.4 g/dL (6.3-8.2) 11/16/19 05:13 Albumin 3.3 g/dL (3.5-5.0) L 11/16/19 05:13 Urine Color YELLOW 11/15/19 13:40 Urine Appearance CLEAR 11/15/19 13:40 Urine pH 7.0 (5.0-9.0) 11/15/19 13:40 Ur Specific [place] 1.017 11/15/19 13:40 Urine Protein 100 mg/dL (NEGATIVE) H 11/15/19 13:40 Urine Glucose (UA) NEGATIVE mg/dL (NEGATIVE) 11/15/19 13:40 Urine Ketones NEGATIVE mg/dL (NEGATIVE) 11/15/19 13:40 Urine Blood NEGATIVE (NEGATIVE) 11/15/19 13:40 Urine Nitrite NEGATIVE (NEGATIVE) 11/15/19 13:40 Urine Bilirubin NEGATIVE (NEGATIVE) 11/15/19 13:40 Urine Urobilinogen 4.0 mg/dL (<2.0) H 11/15/19 13:40 Ur Leukocyte Esterase NEGATIVE (NEGATIVE) 11/15/19 13:40 Urine WBC (Auto) 2 /HPF 11/15/19 13:40 Urine RBC (Auto) 2 /HPF 11/15/19 13:40 U Hyaline Cast (Auto) 2 /LPF 11/15/19 13:40 Urine Mucus (Auto) RARE /LPF 11/15/19 13:40 Urine Ascorbic Acid NEGATIVE (NEGATIVE) 11/15/19 13:40 11/15/19 11/15/19 11/15/19 13:08 13:08 20:45 CK-MB (CK-2) 0.53 Troponin I 0.092 0.102 NT-Pro-B Natriuret Pep 82700 H 11/16/19 11/16/19 05:13 13:19 CK-MB (CK-2) 0.49 0.64 Troponin I 0.063 0.047 NT-Pro-B Natriuret Pep Impressions: Chest X-Ray 11/15/19 00:00 IMPRESSION: Bibasilar (right greater than left) pleural and parenchymal opacities that could represent a combination of pleural fluid, atelectasis and/or consolidation. In addition, give the cardiomegaly and prominence of the interstitium clinical correlation for signs and symptoms of volume overload is recommended. Head CT 11/15/19 14:19 IMPRESSION: No acute intracranial abnormality. EVIDENCE OF ACUTE STROKE: NO. Chest CT 11/15/19 14:22 IMPRESSION: Cardiomegaly, bilateral pleural effusions and thickening of the interlobular septa. These findings are suggestive of CHF. Chest X-Ray 11/16/19 00:00 IMPRESSION: Stable enlarged cardiac silhouette, central vascular congestion and small bilateral effusions. No overt pulmonary edema. Venous Doppler Study 11/16/19 00:00 IMPRESSION: NO EVIDENCE DVT OR SVT IN THE RIGHT LEG. Plan Goals: Please follow up with Primary care withing 7-14 days or contact the provider if symptoms worsen. Please see outpatient physical therapy, and home health with [facility]. Stroke Is this a Stroke Patient?: No Acute Heart Failure - Is this a Heart Failure Patient?: No
== END 2019-11-18 11:19 | disposition home health service (06) | DRG 292 ==
LOC: ER 12:59 → EH 18:46 → 5 11-16 18:44 → OBSVTOIN 11-17 12:28
PROVIDERS: ADMIT Internal Medicine; ATTEND Internal Medicine
DX: I11.0 Hypertensive heart disease with heart failure (principal); L03.115 Cellulitis of right lower limb; I48.21 Permanent atrial fibrillation; I50.23 Acute on chronic systolic (congestive) heart failure; E87.6 Hypokalemia; I25.10 Atherosclerotic heart disease of native coronary artery without angina pectoris; Z79.01 Long term (current) use of anticoagulants; Z95.1 Presence of aortocoronary bypass graft; Z95.5 Presence of coronary angioplasty implant and graft; J44.9 Chronic obstructive pulmonary disease, unspecified; Z86.73 Personal history of transient ischemic attack (TIA), and cerebral infarction without residual deficits; R32 Unspecified urinary incontinence; R00.1 Bradycardia, unspecified; Z87.891 Personal history of nicotine dependence
CPT/HCPCS: 36415; 70450; 71045; 71046; 71250; 80053; 81001; 82550; 82553; 82803; 82962; 83605; 83735; 83880; 84484; 85025; 85610; 87040; 93005; 93010; 93971; 94640; 96361; 96365; 96366; 96367; 96375; 96376; 99285; G0378; J0696; J1940; J3480; J7030; J7620